=== PATIENT | male | born 1970 | race Caucasian/White ===

== ENCOUNTER 2020-09-04 08:28 | Emergency (ER) | payer OTHER, SELFPAY ==
--- NOTE | ~2020-09-04 | XR_ITS ---
EXAMINATION: XR shoulder RT min 2V DATE: 09/04/2020 09:33 INDICATION: Right shoulder pain. TECHNIQUE: 4 views of right shoulder were obtained. COMPARISON: None. FINDINGS: Bone alignment is normal. No fracture. Glenohumeral joint is normal. There is moderate acro mioclavicular joint osteoarthritis. IMPRESSION: 1. Moderate acromioclavicular joint osteoarthritis. Reviewed, dictated and finalized at location A.
[2020-09-04 08:45] VITALS: BP 136/82; PULSE 69; RESP 16; TEMP 35.9; O2SAT 99
--- NOTE | 2020-09-04 09:05 | ED.BACK ---
HPI - Back Pain/Injury General Chief Complaint: Extremity Injury, Upper Stated Complaint: Shoulder Pain History of Present Illness HPI Narrative: This is a 49-year-old male comes in complaining right shoulder near the TRAM PZ muscle pain when he lifts his arm. Patient states that he had a flare few years ago and it went away on its own but this just is not going away he has tried ice ibuprofen and heat symptoms seem not to be resolving but continued to get worse pain started approximately 4 days ago. Patient Denies any injuries to his arm. Related Data Home Medications Medication Instructions Recorded Confirmed simvastatin mg 09/04/20 Allergies Allergy/AdvReac Type Severity Reaction Status Date / Time No Known Allergies Allergy Unverified 04/14/18 14:09 Review of Systems Review of Systems: Narrative: CONSTITUTIONAL: Denies fever, chills, or sweats. EYES: Denies visual changes, redness, or discharge. ENT: Denies rhinorrhea, congestion, sore throat, or otalgia. CARDIOVASCULAR:Denies chest pain, palpitations, or edema. RESPIRATORY: Denies cough or dyspnea. GASTROINTESTINAL: Denies abdominal pain, nausea, vomiting, or diarrhea. GENITOURINARY: Denies dysuria or hematuria. SKIN:[Denies rash or itching. MUSCULOSKELETAL:reports back pain, joint pain, or myalgia. NEUROLOGIC: Denies headache, numbness, or weakness. PSYCHIATRIC:Denies anxiety or depression PMFSH Social History Social History Smoking status: Never smoker Smoking end date: 03/30/06 Alcohol intake: current Comments At time as signature, I have reviewed and agree with nursing past medical, social, surgical and family history. Please see nursing chart for further information. There is no relevant family history pertinent to the presenting complaint. Exam Narrative: Exam Narrative: GENERAL:Well-appearing, well-nourished, and in no acute distress. HEAD:Normocephalic, atraumatic. EYES: PERRLA and EOMI. ENT: Nares clear, no rhinorrhea or epistaxis. Mucous membranes moist. NECK: Supple. CHEST: Clear to auscultation. No respiratory distress. HEART: Regular rate and rhythm. No murmur heard. Normal peripheral pulses. ABDOMEN: Soft, nontender, nondistended, normal active bowel sounds. EXTREMITIES: decreased range of motion due to pain Right clavicular pain with lifting of arm. No edema. SKIN: Warm, dry, no rash. NEURO: No focal deficits. Alert and oriented x3. Course Vital Signs Vital signs: Vital Signs Temperature 96.6 F L 09/04/20 08:45 Pulse Rate 69 09/04/20 08:45 Respiratory Rate 16 09/04/20 08:45 Blood Pressure 136/82 09/04/20 08:45 Pulse Oximetry 99 09/04/20 08:45 Temperature 96.6 F L 09/04/20 08:45 Pulse Rate 69 09/04/20 08:45 Respiratory Rate 16 09/04/20 08:45 Blood Pressure 136/82 09/04/20 08:45 Pulse Oximetry 99 09/04/20 08:45 MDM - Back Pain/Injury Differential Diagnosis Differential diagnosis: Likely lumbar radiculopathy and thoracic back pain Discharge Plan Discharge Clinical Impression: Degenerative joint disease of right acromioclavicular joint, Spasm of muscle, back AC (acromioclavicular) joint arthritis Qualifiers: Laterality: right Qualified Code(s): M19.011 - Primary osteoarthritis, right shoulder Patient Disposition: Home, Self-Care Condition: Stable Instructions: Antibiotic Form, Muscle Spasm (ED), Back Pain (ED), Thoracic Back Strain (ED), Rotator Cuff Injury Exercises (DC) Additional Instructions: ice and heat to the area for 20-30 minutes Gentle stretching exercises, Caution with lifting, bending, stooping, twisting Avoid pushing, pulling Take muscle relaxants as directed--caution drowsiness and no driving or alcohol Anti-inflammatory medicine as directed--take with food May take the muscle relaxant and anti-inflammatory at the same time Follow-up with your PCP if not improving in 5-7 days AT some point you may require ortho when the pain become so severe.. Foll
== END 2020-09-04 10:32 | disposition home or self-care (01) ==
PROVIDERS: Emergency Provider Nurse Practitioner Family
DX: M19.011 Primary osteoarthritis, right shoulder (principal); M62.830 Muscle spasm of back; Z85.528 Personal history of other malignant neoplasm of kidney; Z90.5 Acquired absence of kidney
CPT/HCPCS: 73030; 96372; 99213; G0463; J1100

== ENCOUNTER 2020-09-07 13:24 | Emergency (ER) | payer OTHER, SELFPAY ==
--- NOTE | ~2020-09-07 | CT_ITS ---
EXAMINATION: CT cervical spine wo con DATE: 09/07/2020 17:12 INDICATION: Neck pain with tingling radiating to the right arm. TECHNIQUE: Computed tomography (CT) of the cervical spine was performed without intravenous contrast. Automated exposure control and iterative reconstruction technique were employed. The dose-length pro duct was 439.79 mGy-cm. COMPARISON: None FINDINGS: There is kyphosis of cervical spine. There is 3 degrees dextrocurvature of cervical spine. Vertebral body heights are normal. There is mildly decreased disc height at C3-C4 and moderately decr eased disc height at C5-C6 and C6-C7. The following disc levels are specifically discussed: C2-C3: There is mild right and moderate left uncovertebral joint osteoarthritis. There is moderate ri ght and mild left facet joint osteoarthritis. There is mild left neural foraminal stenosis. There is no central canal stenosis. C3-C4: There is moderate bilateral uncovertebral joint osteoarthritis. There is mild bilateral facet joint osteoarthritis. There is mild bilateral neural foraminal stenosis. There is mild central canal stenosis. C4-C5: There is mild bilateral uncovertebral joint osteoarthritis. There is mild right and moderate l eft facet joint osteoarthritis. There is mild right neural foraminal stenosis. There is no central ca nal stenosis. C5-C6: There is mild bilateral uncovertebral joint osteoarthritis. There is mild bilateral facet join t osteoarthritis. There is no neural foraminal stenosis. There is mild central canal stenosis. C6-C7: There is severe right and moderate left uncovertebral joint osteoarthritis. There is no facet joint osteoarthritis. There is mild bilateral neural foraminal stenosis. There is mild central canal stenosis. C7-T1: There is no uncovertebral joint osteoarthritis. There is severe right and moderate left facet joint osteoarthritis. There is mild right neural foraminal stenosis. There is no central canal stenos is. IMPRESSION: 1. Moderate cervical spondylosis. Reviewed, dictated and finalized at location A.
[2020-09-07 13:32] VITALS: BP 140/80; PULSE 78; RESP 18; TEMP 36.1; O2SAT 97
--- NOTE | 2020-09-07 15:39 | ED.NECK ---
HPI - Neck Pain/Injury General Chief Complaint: Neck Pain/Injury Stated Complaint: neck pain Time Seen by Provider: 09/07/20 13:54 Source: patient Mode of arrival: ambulatory Limitations: no limitations History of Present Illness HPI Narrative: Patient is a 49 year old male who presents with complaints of neck pain that radiates to right shoulder and arm x 4-5 days. Patient denies known injury but reports frequently works out at the gym . He reports being seen in approximately 2 days ago and started on prednisone and muscle relaxer. Patient reports little relief. He denies chest pain or shortness of breath, he denies cardiac history or other complaints at this time. Related Data Allergies Allergy/AdvReac Type Severity Reaction Status Date / Time No Known Allergies Allergy Unverified 04/14/18 14:09 Review of Systems Review of Systems: Narrative: CONSTITUTIONAL: Denies fever, chills, or sweats. EYES: Denies visual changes, redness, or discharge. ENT: Denies rhinorrhea, congestion, sore throat, or otalgia. CARDIOVASCULAR: Denies chest pain, palpitations, or edema. RESPIRATORY: Denies cough or dyspnea. GASTROINTESTINAL: Denies abdominal pain, nausea, vomiting, or diarrhea. GENITOURINARY: Denies dysuria or hematuria. SKIN: Denies rash or itching. MUSCULOSKELETAL: Reports neck/ shoulder pain that radiates down left arm. Denies back pain, joint pain, or myalgia. NEUROLOGIC: Denies headache, numbness, dizziness, or weakness. PSYCHIATRIC: Denies anxiety or depression. PMFSH Past Medical History Medical History Kidney malignancy Surgical History Surgical History History of nephrectomy Social History Social History Smoking status: Never smoker Smoking end date: 03/30/06 Alcohol intake: current Gender identity (if verbalized by the patient): Male Comments At the time of signature, I have reviewed and agree with nursing past medical, surgical, social, and family history unless otherwise noted. Please see nursing chart for further information. There is no relevant family history pertinent to the presenting complaint. Exam Narrative: Exam Narrative: GENERAL: Well-appearing, well-nourished, and in no acute distress. HEAD: Normocephalic, atraumatic. EYES: EOMI. No redness or drainage. Conjunctiva are normal. ENT: Mucous membranes pink and moist. NECK: AROM. Supple. No lymphadenopathy. CHEST: No respiratory distress. Clear to auscultation. HEART: Regular rate and rhythm. EXTREMITIES: Normal range of motion. No edema. Tenderness with palpation to right trapezius. Good peripheral pulse. Increased pain with passive ROM. SKIN: Warm, dry, no rash. NEURO: No focal deficits. Alert and oriented x3. Gait steady. PSYCH: Normal affect. No signs of depression or anxiety. Course Vital Signs Vital signs: Vital Signs Temperature 36.1 C L 09/07/20 13:32 Pulse Rate 78 09/07/20 13:32 Respiratory Rate 18 09/07/20 13:32 Blood Pressure 140/80 09/07/20 13:32 Pulse Oximetry 97 09/07/20 13:32 Temperature 36.1 C L 09/07/20 13:32 Pulse Rate 78 09/07/20 13:32 Respiratory Rate 18 09/07/20 13:32 Blood Pressure 140/80 09/07/20 13:32 Pulse Oximetry 97 09/07/20 13:32 Reviewed. Patient has been instructed to follow-up with his PCP regarding his blood pressure. MDM - Neck Pain/Injury Differential Diagnosis Differential diagnosis: Likely disc disorder of cervical region, cervical radiculopathy, cervical spondylosis and strain of neck muscle Medical Records Attestation: I reviewed the patient's medical records. Imaging Data Radiologist's impression: ITS Impressions Cervical Spine CT 09/07/20 17:18 IMPRESSION: 1. Moderate cervical spondylosis. Critical Care Time Critical Care Time Critical Care Time: No Discharge Plan Discharge Clinical Impression: Cervical s
[2020-09-07] MEDS: KETOROLAC (*BKC) 60 MG/2 ML VIAL IM (16:10)
[2020-09-07] MEDS: diazePAM INJ (*CRX) 10 MG/2 ML SYRINGE 5 MG IM (16:10)
[2020-09-07 19:10] VITALS: BP 154/86; PULSE 64; RESP 16; O2SAT 100
== END 2020-09-07 19:10 | disposition home or self-care (01) ==
PROVIDERS: Emergency Provider Nurse Practitioner; PCP Family Medicine
DX: M47.22 Other spondylosis with radiculopathy, cervical region (principal); Z85.528 Personal history of other malignant neoplasm of kidney; Z90.5 Acquired absence of kidney
CPT/HCPCS: 72125; 96372; 99284; J1885; J3360